=== PATIENT | female | born 1960 | race Caucasian/White ===

== ENCOUNTER → 2019-05-25 | Outpatient (CLI) | payer BC ==
--- NOTE | 2019-05-25 09:42 | XR ---
EXAMINATION TYPE: XR foot complete RT DATE OF EXAM: 05/25/2019 COMPARISON: NONE HISTORY: Pain TECHNIQUE: Three views are submitted. FINDINGS: The osseous structures are intact. There is no acute fracture or dislocation. Severe arthropathy o f the first MTP. IMPRESSION: 1. No acute fracture or dislocation. If symptoms persist, follow-up exam in 7 to 10 days could be ob tained. 2. Arthropathy first MTP
== END | disposition home or self-care (01) ==
LOC: RADXRMAIN 08:09
PROVIDERS: ATTEND Family Medicine
DX: M19.071 Primary osteoarthritis, right ankle and foot (principal)

== ENCOUNTER → 2020-01-24 | Outpatient (CLI) | payer BC ==
--- NOTE | 2020-01-24 09:37 | XR ---
EXAMINATION TYPE: XR Hip Complete LT DATE OF EXAM: 01/24/2020 COMPARISON: NONE HISTORY: Pain and clicking TECHNIQUE: 2 views submitted FINDINGS: There is no evidence of erosive change or acute fracture. Mild concentric narrowing the joint space w ith hypertrophic change of the acetabulum. IMPRESSION: 1. Arthropathy correlate for femoral acetabular impingement.
== END | disposition home or self-care (01) ==
LOC: RADXRMAIN 09:12
PROVIDERS: ATTEND Family Medicine
DX: M12.852 Other specific arthropathies, not elsewhere classified, left hip (principal)
CPT/HCPCS: 73502

== ENCOUNTER → 2020-03-11 | Outpatient (CLI) | payer BC | END | disposition home or self-care (01) | LOC: LABWHC1 15:50 | PROVIDERS: ATTEND Family Medicine | DX: Z20.828 Contact with and (suspected) exposure to other viral communicable diseases (principal) | CPT/HCPCS: U0003; C9803 ==

== ENCOUNTER → 2020-04-02 | Outpatient (CLI) | payer BC ==
--- NOTE | 2020-04-03 11:20 | MM ---
Reason for exam: screening (asymptomatic). Last mammogram was performed 5 years ago. History: Patient is postmenopausal. Family history of breast cancer in 2 paternal aunts. Took hormonal contraceptives for 6 years. Physical Findings: A clinical breast exam by your physician is recommended on an annual basis and results should be correlated with mammographic findings. MG Screening Mammo w CAD Bilateral CC and MLO view(s) were taken. XCCL view(s) were taken of the right breast. Prior study comparison: April 04, 2015, bilateral MG screening mammo w CAD. August 31, 2000, bilateral special view mammogram. The breast tissue is almost entirely fat. No significant changes when compared with prior studies. ASSESSMENT: Benign, BI-RAD 2 RECOMMENDATION: Routine screening mammogram of both breasts in 1 year.
== END | disposition home or self-care (01) ==
LOC: RADMAMWWP 07:59
PROVIDERS: ATTEND Family Medicine
DX: Z12.31 Encounter for screening mammogram for malignant neoplasm of breast (principal)
CPT/HCPCS: 77067

== ENCOUNTER → 2020-11-06 | Outpatient (CLI) | payer BC ==
--- NOTE | 2020-11-06 08:26 | CT ---
EXAMINATION TYPE: CT hip LT wo con DATE OF EXAM: 11/06/2020 COMPARISON: HISTORY: Difficulty rising from chair. Mobility issues CT DLP: 537.40 mGycm Automated exposure control for dose reduction was used. None of unenhanced CT of the left hip was per formed with axial sagittal and coronal images reviewed in the bone and soft tissue window settings. FINDINGS: There is no evidence for fracture or dislocation. Mild degenerative joint space narrowing is identifi ed. No evidence for soft tissue mass or abnormal fluid collection. Superior acetabular spurring noted . IMPRESSION: NO EVIDENCE OF FRACTURE. DEGENERATIVE CHANGES NOTED.
--- NOTE | 2020-11-06 08:52 | CT ---
EXAMINATION TYPE: CT cervical spine wo con DATE OF EXAM: 11/06/2020 COMPARISON: None HISTORY: Cervical pain, fingers tingling for [address] DLP: 799.[address] of the cervical spine was performed with bone and soft tissue window settings submitted . Coronal and sagittal reconstruction is obtained. Extensive postsurgical change of anterior cervical discectomy and fusion extending from C3 through C7 . Ventral fixation plate and screws are in place. Alignment is near-anatomic. There is hypertrophic c hange seen posteriorly at C3-4 resulting in hard disc and moderate central stenosis and bilateral for aminal encroachment at this level. C4-5 and C5-6 appear within normal limits. Additional hypertrophic change posteriorly at C6-7 with effacement of the ventral thecal sac resulting in mild lateral reces s stenosis and bilateral foraminal encroachment. C2-3 is within normal limits as is C7-T1. IMPRESSION: 1. Extensive postsurgical change of ACDF. 2. Moderate central stenosis at C3-4. See above.
== END | disposition home or self-care (01) ==
LOC: RADCTMAIN 07:12
PROVIDERS: ATTEND Family Medicine
DX: M48.02 Spinal stenosis, cervical region (principal); M54.12 Radiculopathy, cervical region
CPT/HCPCS: 72125

== ENCOUNTER → 2020-11-27 | Outpatient (CLI) | payer BC ==
--- NOTE | 2020-11-27 08:56 | CT ---
EXAMINATION TYPE: CT lumbar spine w con DATE OF EXAM: 11/27/2020 COMPARISON: None. HISTORY: Sciatica CT DLP: 1659.2 mGycm Automated exposure control for dose reduction was used. CONTRAST: CT scan of the lumbar is performed with IV Contrast, patient injected with 80 mL of Isovue 300. Enhanced CT of the lumbar spine was performed. Bone and soft tissue window settings are submitted as well as coronal and sagittal reconstructions. There are 5 lumbar-type vertebra. Mild disc space narrowing L3-L4 and L5-S1 levels with vacuum disc p henomenon. Vertebral body heights are maintained. Slight levoconvex scoliotic curvature positioning o n coronal images. Mild to moderate multilevel anterior and lateral spurring. Multiple posterior thelma ectomy defects and spinous process resection L3-L5 levels noted. Axial images at T12-L1 appear within normal limits. Axial images at L1-L2 level show mild facet arthropathy bilaterally. Axial images at L2-L3 level moderate broad-based posterior disc protrusion effacing the anterior thec al sac. There is moderate facet arthropathy bilaterally effacing posterior lateral thecal sac on axia l image 33. There is mild to moderate left greater than right bilateral inferior neural foraminal kalyn rowing noted. Axial images at L3-L4 level show laminectomy defects and spinous process resection. There is severe b road-based posterior disc protrusion effacing the anterior thecal sac seen by sagittal image 30. Ther e is moderate to advanced facet arthropathy bilaterally. There is moderate to borderline severe bilat eral neural foraminal narrowing noted. Axial images at L4-L5 level show mild/moderate facet arthropathy bilaterally. There is posterior deco mpression changes. Tiny central disc protrusion mildly effaces the anterior thecal sac. Mtbp-zs-daeue ate bilateral neural foraminal narrowing is present. Axial images at L5-S1 level show moderate to advanced facet arthropathy bilaterally. Posterior decomp ression changes are present. There is marginal spurring. There is moderate right inferior and moderat e to severe left-sided neural foraminal narrowing. No suspicious enhancement is present. Cholecystectomy clips are noted on localizer. Few sigmoid colon ic diverticula are appreciated. IMPRESSION: Lower lumbar spine posterior decompression. Multilevel degenerative changes as detailed a rebecca greatest at L3-L4 level.
== END | disposition home or self-care (01) ==
LOC: RADCTMAIN 06:57
PROVIDERS: ATTEND Family Medicine
DX: M47.896 Other spondylosis, lumbar region (principal); M54.30 Sciatica, unspecified side; M54.16 Radiculopathy, lumbar region
CPT/HCPCS: 82565; 84520; 72132; 36415; Q9967

== ENCOUNTER → 2021-01-24 | Outpatient (CLI) | payer BC ==
--- NOTE | 2021-01-24 07:47 | MR ---
EXAMINATION TYPE: MR lumbar spine wo/w con DATE OF EXAM: 01/24/2021 COMPARISON: CT lumbar spine November 27, 2020 HISTORY: Lumbar back pain with radiculopathy TECHNIQUE: Multiplanar, multisequence images of the lumbar spine is performed without and with IV contrast, util izing 11 mL intravenous Gadavist FINDINGS: Sagittal images of the lumbar spine show vertebral body heights to appear satisfactory. Sub tle grade 1 retrolisthesis L2 on L3. Multilevel disc desiccation and moderate disc space narrowing L5 -S1 level with moderate anterior spurring. Dngk-hq-hvpujqyj multilevel anterior spurring overall. Th e conus medullaris is normal in position and signal ending at T12-L1 disc space level. The bone mitzi ow signal intensity is within normal limits. Evidence of posterior decompression changes lower lumbar spine with absent spinous processes of L3-L5 level. No suspicious postcontrast enhancement is seen. Axial images at T12-L1 level shows mild broad-based disc bulge mildly effacing the anterior thecal sa c and mild facet arthropathy and ligamentum flavum hypertrophy. Patent bilateral neural foramina. Axial images at the L1-L2 level appear within normal limits. Axial images at the L2-L3 level shows moderate broad-based disc bulge effacing the anterior thecal sa c. There is mild to moderate facet arthropathy and ligamentum flavum hypertrophy effacing the posteri or lateral thecal sac greater on the right. There is mild right and moderate left-sided inferior neur al foraminal narrowing. Axial images at L3-L4 level show bilateral laminectomy defects and spinous process resection. There i s mild left greater than right facet arthropathy. There is moderate to severe broad-based disc bulge and left foraminal protrusion effacing the anterior thecal sac. There is moderate bilateral inferior neural foraminal narrowing greater on the left. Axial images at the L4-L5 level shows bilateral laminectomy defects and spinous process resection. Th ere is hjza-ko-hcbcibaz facet arthropathy bilaterally. Spinal canal is preserved. Patent bilateral ne ural foramina. Axial images at the L5-S1 level show moderate to advanced facet arthropathy. There is moderate broad disc bulge. There is moderate to severe left-sided neural foraminal narrowing encroaching upon the in ferior margin left L5 nerve sagittal image 2. Right-sided neural foramina shows mild inferior neural foraminal narrowing. Paraspinal muscle bulk is preserved. IMPRESSION: Posterior decompression changes mid to lower lumbar spine. Multilevel degenerative change s are present as detailed above. Largest disc herniation noted at L3-L4 level.
== END | disposition home or self-care (01) ==
LOC: RADMRIMAIN 06:41
PROVIDERS: ATTEND Family Medicine
DX: M51.36 Other intervertebral disc degeneration, lumbar region (principal); M54.16 Radiculopathy, lumbar region
CPT/HCPCS: 72158; A9585

== ENCOUNTER → 2023-03-16 | Outpatient (CLI) | payer BC ==
--- NOTE | 2023-03-16 09:37 | XR ---
EXAMINATION TYPE: XR cervical spine w flex/ext DATE OF EXAM: 03/16/2023 COMPARISON: NONE HISTORY: Pain TECHNIQUE: 6 views are submitted including flexion and extension lateral views. FINDINGS: The odontoid is intact. There are no compression deformities. The prevertebral soft tissue structur es are within normal limits. Postsurgical changes extending from C3 through the lower cervical spine . Alignment anatomic. Posterior spondylosis at all levels with facet arthropathy. Hypertrophic spurri ng and mild degenerative change C2-C3. Oblique views suggest neural foraminal encroachment level C3-C 7. There is a slight anterior listhesis of C2-C3 flexion views and retrolisthesis of C2-C3 on extension views. IMPRESSION: 1. Postsurgical changes with multilevel facet arthropathy and bilateral foraminal encroachment. 2. See above regarding C2-C3.
== END | disposition home or self-care (01) ==
LOC: RADXRMAIN 08:41
PROVIDERS: ATTEND Family Medicine
DX: M47.22 Other spondylosis with radiculopathy, cervical region (principal); M99.71 Connective tissue and disc stenosis of intervertebral foramina of cervical region; Z98.890 Other specified postprocedural states
CPT/HCPCS: 72052

== ENCOUNTER 2024-04-26 06:53 | Emergency (ER) | payer BC ==
[2024-04-26 07:14] LABS: Glucose,Whole Blood 113 mg/dL (70-110)
--- NOTE | 2024-04-26 07:17 | ED ---
General Adult HPI - General Chief complaint: Weakness Stated complaint: Weakness Time Seen by Provider: 04/26/24 07:02 Source: patient, EMS, RN notes reviewed Mode of arrival: EMS Limitations: no limitations - History of Present Illness Initial comments: Patient is a 63-year-old female present to the emergency department with concerns for lightheadedness. Onset of symptoms was a week ago. Patient feels lightheaded in the morning. Patient felt lightheaded again this morning when she woke up. No confusion. No weakness. Patient does have history of similar problems previously associated with blood sugar being low however blood sugar was 155 this morning. Patient had blood pressure of 97 systolic yesterday. Patient has right lower extremity wound that is improving and was at wound care yesterday. - Related Data Allergies Allergy/AdvReac Type Severity Reaction Status Date / Time latex Allergy Dyspnea Verified 04/26/24 07:20 Review of Systems ROS Statement: Those systems with pertinent positive or pertinent negative responses have been documented in the HPI. ROS Other: All systems not noted in ROS Statement are negative. Constitutional: Denies: fever Eyes: Denies: eye pain ENT: Denies: throat pain Respiratory: Denies: cough, dyspnea Endocrine: Denies: fatigue Gastrointestinal: Denies: abdominal pain Musculoskeletal: Denies: back pain Skin: Reports: as per HPI Past Medical History Past Medical History: Diabetes Mellitus, Hypertension Additional Past Medical History / Comment(s): cervical and spinal stenosis, lupus, insulin pump, low platelets Past Surgical History: Adenoidectomy, Back Surgery, Section, Cholecyst ectomy, Hysterectomy, Tonsillectomy Additional Past Surgical History / Comment(s): cervical fusion c2-4, D&C 1996 Past Psychological History: No Psychological Hx Reported Smoking Status: Never smoker Past Alcohol Use History: None Reported Past Drug Use History: None Reported General Exam Limitations: no limitations General appearance: alert, in no apparent distress Head exam: Present: normocephalic Eye exam: Present: normal appearance, PERRL, EOMI ENT exam: Present: normal oropharynx Neck exam: Present: normal inspection Respiratory exam: Present: normal lung sounds bilaterally Cardiovascular Exam: Present: regular rate, normal rhythm, normal heart sounds GI/Abdominal exam: Present: soft. Absent: tenderness Extremities exam: Present: normal inspection. Absent: calf tenderness Neurological exam: Present: alert Psychiatric exam: Present: normal affect, normal mood Skin exam: Present: normal color Course Vital Signs 04/26/24 04/26/24 04/26/24 07:01 07:30 07:32 Temperature 97.2 F L Pulse Rate 89 Pulse Rate [ 87 91 Tree Surgeon Helper ] Respiratory 18 16 16 Rate Blood Pressure 126/70 Blood Pressure 101/75 [Right Arm Sitting] Blood Pressure [Right Arm Standing] Blood Pressure 120/61 [Right Arm Supine] O2 Sat by Pulse 95 97 91 L Oximetry 04/26/24 04/26/24 04/26/24 07:34 08:02 08:35 Temperature 98.0 F Pulse Rate 89 88 Pulse Rate [ 98 Tree Surgeon Helper ] Respiratory 18 16 18 Rate Blood Pressure 117/64 120/77 Blood Pressure [Right Arm Sitting] Blood Pressure 86/69 [Right Arm Standing] Blood Pressure [Right Arm Supine] O2 Sat by Pulse 89 L 97 98 Oximetry 04/26/24 08:55 Temperature Pulse Rate 89 Pulse Rate [ Tree Surgeon Helper ] Respiratory 16 Rate Blood Pressure Blood Pressure [Right Arm Sitting] Blood Pressure [Right Arm Standing] Blood Pressure [Right Arm Supine] O2 Sat by Pulse 98 Oximetry EKG Findings - EKG Results: EKG: interpreted by ERMD (Low voltage in precordial leads), sinus rhythm, normal axis, normal ST/T Medical Decision Making - Medical Decision Making Was pt. sent in by a medical professional or institution (KAREEM Mitchell, TOOL SHARPENER, urgent care, hospital, or correction...) When possible be specific @ -No Did you speak to anyone other than the patient for history (EMS, parent, family, police, friend...)? What history was obtained from this source @ -No Did you review nursing and triage notes (agree or disagree)? Why? @ -I reviewed and agree with nursing and triage notes Were old charts reviewed (outside hosp., previous admission, EMS record, old EKG, old radiological studies, urgent care reports/EKG's, correction records)? Report findings @ -Previous labs were reviewed and BUN/creatinine is worse than previous Differential Diagnosis (chest pain, altered mental status, abdominal pain women, abdominal pain men, vaginal bleeding, weakness, fever, dyspnea, syncope, headache, dizziness, GI bleed, back pain, seizure, CVA, palpatations, mental health, musculoskeletal)? @ -Differential Weakness: Hypoglycemia, shock, sepsis, hyponatremia, anemia, infection, WA, ETOH, adverse medicine reaction, overdose, stroke, this is not meant to be an all-inclusive list. EKG interpreted by me (3pts min.). @ -As above X-rays interpreted by me (1pt min.). @ -Chest x-ray reveals no acute abnormality CT interpreted by me (1pt min.). @ -None done U/S interpreted by me (1pt. min.). @ -None done What testing was considered but not performed or refused? (CT, X-rays, U/S, labs)? Why? @ -None What meds were considered but not given or refused? Why? @ -None Did you discuss the management of the patient with other professionals (professionals i.e. , PA, TOOL SHARPENER, lab, RT, psych nurse, social media marketing specialist, parts technician, teacher, employment officer, case supervisor)? Give summary @ -No Was smoking cessation discussed for >3mins.? @ -No Was critical care preformed (if so, how long)? @ -No Were there social determinants of health that impacted care today? How? (Homelessness, low income, unemployed, alcoholism, drug addiction, transport ation, low edu. Level, literacy, decrease access to med. care, custodial, rehab)? @ -No Was there de-escalation of care discussed even if they declined (Discuss DNR or withdrawal of care, Hospice)? DNR status @ -No What co-morbidities impacted this encounter? (DM, HTN, Smoking, COPD, CAD, Cancer, CVA, ARF, Chemo, Hep., AIDS, mental health diagnosis, sleep apnea, morbid obesity)? @ -None Was patient admitted / discharged? Hospital course, mention meds given and route, prescriptions, significant lab abnormalities, going to OR and other pertinent info. @ -Patient presents with lightheadedness. Patient states she does not eat and drink very well. Evaluation concerning for orthostatic hypotension and renal insufficiency. Patient will be provided fluids. Patient would like to be discharged and follow-up with primary care physician and this does seem reasonable. Patient updated on results and need for close follow-up and repeat testing. Undiagnosed new problem with uncertain prognosis? @ -No Drug Therapy requiring intensive monitoring for toxicity (Heparin, Nitro, Insulin, Cardizem)? @ -No Were any procedures done? @ -No Diagnosis/symptom? @ -Orthostatic hypotension Acute, or Chronic, or Acute on Chronic? @ -Acute Uncomplicated (without systemic symptoms) or Complicated (systemic symptoms)? @ -Complicated with renal insufficiency and mild hyperkalemia Side effects of treatment? @ -No Exacerbation, Progression, or Severe Exacerbation? @ -No Poses a threat to life or bodily function? How? (Chest pain, [place], WA, pneumonia, PE, COPD, DKA, ARF, appy, cholecystitis, CVA, Diverticulitis, Homicidal, Suicidal, threat to staff... and all critical care pts) @ -No - Lab Data Result diagrams: 04/26/24 08:05 04/26/24 08:05 Lab Results 04/26/24 04/26/24 04/26/24 Range/Units 07:13 08:05 08:05 WBC 13.6 H (3.8-10.6) k/uL RBC 4.49 (3.80-5.40) m/uL Hgb 12.3 (11.4-16.0) gm/dL Hct 37.3 (34.0-46.0) % MCV 83.1 (80.0-100.0) fL MCH 27.3 (25.0-35.0) pg MCHC 32.8 (31.0-37.0) g/dL RDW 14.6 (11.5-15.5) % Plt Count 163 (150-450) k/uL MPV 8.9 Neutrophils % 77 % Lymphocytes % 11 % Monocytes % 6 % Eosinophils % 3 % Basophils % 0 % Neutrophils # 10.5 H (1.3-7.7) k/uL Lymphocytes # 1.5 (1.0-4.8) k/uL Monocytes # 0.8 (0-1.0) k/uL Eosinophils # 0.4 (0-0.7) k/uL Basophils # 0.0 (0-0.2) k/uL PT 11.4 (10.0-12.5) sec INR 1.0 (<1.2) APTT 23.5 (22.0-30.0) sec Sodium (137-145) mmol/L Potassium (3.5-5.1) mmol/L Chloride (98-107) mmol/L Carbon Dioxide (22-30) mmol/L Anion Gap mmol/L BUN (7-17) mg/dL Creatinine (0.52-1.04) mg/dL Est GFR (CKD-EPI)AfAm (>60 ml/min/1.73 sqM) Est GFR (CKD-EPI)NonAf (>60 ml/min/1.73 sqM) Glucose (74-99) mg/dL POC Glucose (mg/dL) 113 H (70-110) mg/dL POC Glu Senior Consulting Manager ID Roberto [place] Plasma Lactic Acid Dagoberto (0.7-2.0) mmol/L Calcium (8.4-10.2) mg/dL Magnesium (1.6-2.3) mg/dL Total Bilirubin (0.2-1.3) mg/dL AST (14-36) U/L ALT (4-34) U/L Alkaline Phosphatase (38-126) U/L Troponin I (0.000-0.034) ng/mL Total Protein (6.3-8.2) g/dL Albumin (3.5-5.0) g/dL 04/26/24 04/26/24 04/26/24 Range/Units 08:05 08:05 08:05 WBC (3.8-10.6) k/uL RBC (3.80-5.40) m/uL Hgb (11.4-16.0) gm/dL Hct (34.0-46.0) % MCV (80.0-100.0) fL MCH (25.0-35.0) pg MCHC (31.0-37.0) g/dL RDW (11.5-15.5) % Plt Count (150-450) k/uL MPV Neutrophils % % Lymphocytes % % Monocytes % % Eosinophils % % Basophils % % Neutrophils # (1.3-7.7) k/uL Lymphocytes # (1.0-4.8) k/uL Monocytes # (0-1.0) k/uL Eosinophils # (0-0.7) k/uL Basophils # (0-0.2) k/uL PT (10.0-12.5) sec INR (<1.2) APTT (22.0-30.0) sec Sodium 140 (137-145) mmol/L Potassium 5.7 H (3.5-5.1) mmol/L Chloride 107 (98-107) mmol/L Carbon Dioxide 20 L (22-30) mmol/L Anion Gap 13 mmol/L BUN 63 H (7-17) mg/dL Creatinine 1.30 H (0.52-1.04) mg/dL Est GFR (CKD-EPI)AfAm 50 (>60 ml/min/1.73 sqM) Est GFR (CKD-EPI)NonAf 44 (>60 ml/min/1.73 sqM) Glucose 140 H (74-99) mg/dL POC Glucose (mg/dL) (70-110) mg/dL POC Glu Senior Consulting Manager ID Plasma Lactic Acid Dagoberto 0.8 (0.7-2.0) mmol/L Calcium 9.5 (8.4-10.2) mg/dL Magnesium 2.0 (1.6-2.3) mg/dL Total Bilirubin 0.8 (0.2-1.3) mg/dL AST 30 (14-36) U/L ALT 44 H (4-34) U/L Alkaline Phosphatase 215 H (38-126) U/L Troponin I <0.012 (0.000-0.034) ng/mL Total Protein 6.7 (6.3-8.2) g/dL Albumin 3.5 (3.5-5.0) g/dL Disposition Clinical Impression: Orthostatic hypotension, Renal insufficiency Disposition: HOME SELF-CARE Condition: Stable Instructions (If sedation given, give patient instructions): Hypotension (ED) Additional Instructions: Please do follow-up with your primary care physician in the next couple of days for recheck. You will need to have your kidney function and potassium levels rechecked. Return for increased lightheadedness, inability to tolerate oral intake, weakness, worsening symptoms or other concerns. Is patient prescribed a controlled substance at d/c from ED?: No Referrals: Martínez Presley Jr, [Primary Care Provider] - 1-2 days Time of Disposition: 09:00
[2024-04-26] MEDS: SODIUM CHLORIDE 0.9% 1,000 ML IV STA (08:09)
[2024-04-26] MEDS: SODIUM CHLORIDE 0.9% 500 ML 500 ML IV STA ×2 (08:11→08:57)
[2024-04-26 08:16] LABS: Basophils % (A) 0 %; Eosinophils # (A) 0.4 k/uL (0-0.7); Eosinophils % (A) 3 %; HCT 37.3 % (34.0-46.0); HGB 12.3 gm/dL (11.4-16.0); Lymphocytes # (A) 1.5 k/uL (1.0-4.8); Lymphocytes % (A) 11 %; MCH 27.3 pg (25.0-35.0); MCHC 32.8 g/dL (31.0-37.0); MCV 83.1 fL (80.0-100.0); Mean Platelet Volume 8.9; Monocytes # (A) 0.8 k/uL (0-1.0); Monocytes % (A) 6 %; Neutrophils # (A) 10.5 k/uL (1.3-7.7); Neutrophils % (A) 77 %; Platelet Count 163 k/uL (150-450); RBC 4.49 m/uL (3.80-5.40); RDW 14.6 % (11.5-15.5); WBC 13.6 k/uL (3.8-10.6)
[2024-04-26 08:27] LABS: Partial Thromboplastin Time 23.5 sec (22.0-30.0); Prothrombin Time 11.4 sec (10.0-12.5)
[2024-04-26 08:31] LABS: ALT 44 U/L (4-34); African American GFR (CKD) 50 (>60 ml/min/1.73 sqM); Albumin 3.5 g/dL (3.5-5.0); Anion Gap 13 mmol/L; Blood Urea Nitrogen 63 mg/dL (7-17); Calcium 9.5 mg/dL (8.4-10.2); Carbon Dioxide 20 mmol/L (22-30); Chloride 107 mmol/L (98-107); Glucose 140 mg/dL (74-99); Non-African American GFR(CKD) 44 (>60 ml/min/1.73 sqM); Sodium 140 mmol/L (137-145); Total Bilirubin 0.8 mg/dL (0.2-1.3); Total Protein 6.7 g/dL (6.3-8.2)
[2024-04-26 08:33] LABS: AST 30 U/L (14-36); Alkaline Phosphatase 215 U/L (38-126); Potassium 5.7 mmol/L (3.5-5.1)
--- NOTE | 2024-04-26 08:36 | XR ---
EXAMINATION TYPE: XR chest 2V DATE OF EXAM: 04/26/2024 8:31 AM COMPARISON: None CLINICAL INDICATION: Female, 63 years old with history of Weakness; TECHNIQUE: XR chest 2V Frontal and lateral views of the chest. FINDINGS: Lungs/Pleura: There is no evidence of pleural effusion, focal consolidation, or pneumothorax. Pulmonary vascularity: Unremarkable. Heart/mediastinum: Cardiomediastinal silhouette is unremarkable. Musculoskeletal: No acute osseous pathology. There is fixation hardware in the lower cervical spine. IMPRESSION: No acute cardiopulmonary disease/process. [facility], , 04/26/2024 8:33 AM
[2024-04-26 10:09] VITALS: BP 132/70; PULSE 92; RESP 16; TEMP 97.8
== END 2024-04-26 10:08 | disposition home or self-care (01) ==
LOC: EC 06:53
DX: I95.1 Orthostatic hypotension (principal); N28.9 Disorder of kidney and ureter, unspecified; Z91.040 Latex allergy status
CPT/HCPCS: 36415; 71046; 80053; 83605; 83735; 84484; 85025; 85610; 85730; 93005; 96360; 96361; 99285

== ENCOUNTER 2024-08-30 08:51 | Emergency (ER) | payer BC ==
--- NOTE | 2024-08-30 09:42 | ED ---
Female Urogenital HPI - General Chief complaint: Urogenital Stated complaint: Urogenital Time Seen by Provider: 08/30/24 09:03 Source: patient, RN notes reviewed Mode of arrival: ambulatory Limitations: no limitations - History of Present Illness Initial comments: 63-year-old female presents emerged part complaint gross hematuria. Patient states that started on Wednesday has been progressive. She does have some urinary urgency. No dysuria denies fevers or chills she denies any history of this. She states she is on no blood thinners she states she has had history of thrombocytopenia has seen allergy for years and they just told her this was her normal baseline. Patient denies any chest pain shortness of breath she states she feels tired but no other complaints. - Related Data Previous Rx's Medication Instructions Recorded Levofloxacin [Levaquin] 500 mg PO DAILY #7 tab 08/30/24 Allergies Allergy/AdvReac Type Severity Reaction Status Date / Time latex Allergy Dyspnea Verified 08/30/24 09:00 Review of Systems ROS Statement: Those systems with pertinent positive or pertinent negative responses have been documented in the HPI. ROS Other: All systems not noted in ROS Statement are negative. Past Medical History Past Medical History: Diabetes Mellitus, Hypertension Additional Past Medical History / Comment(s): cervical and spinal stenosis, lupus, insulin pump, low platelets Past Surgical History: Adenoidectomy, Back Surgery, Section, Cholecystectomy, Hysterectomy, Tonsillectomy Additional Past Surgical History / Comment(s): cervical fusion c2-4, D&C 1996 Past Psychological History: No Psychological Hx Reported Smoking Status: Never smoker Past Alcohol Use History: None Reported Past Drug Use History: None Reported General Exam Limitations: no limitations General appearance: alert, in no apparent distress Head exam: Present: atraumatic, normocephalic, normal inspection Eye exam: Present: normal appearance, PERRL, EOMI. Absent: scleral icterus, conjunctival injection, periorbital swelling ENT exam: Present: normal exam, mucous membranes moist Neck exam: Present: normal inspection, full ROM. Absent: tenderness, meningismus, lymphadenopathy Respiratory exam: Present: normal lung sounds bilaterally. Absent: respiratory distress, wheezes, rales, rhonchi, stridor Cardiovascular Exam: Present: regular rate, normal rhythm, normal heart sounds. Absent: systolic murmur, diastolic murmur, rubs, gallop, clicks GI/Abdominal exam: Present: soft, normal bowel sounds. Absent: distended, tenderness, guarding, rebound, rigid Course Vital Signs 08/30/24 08:57 Temperature 97.4 F L Pulse Rate 83 Respiratory 16 Rate Blood Pressure 144/83 O2 Sat by Pulse 96 Oximetry Medical Decision Making - Medical Decision Making Was pt. sent in by a medical professional or institution (, PA, PAYROLL AUDITOR, urgent c are, hospital, or half-way...) When possible be specific @ -No Did you speak to anyone other than the patient for history (EMS, parent, family, police, friend...)? What history was obtained from this source @ -No Did you review nursing and triage notes (agree or disagree)? Why? @ -I reviewed and agree with nursing and triage notes Were old charts reviewed (outside hosp., previous admission, EMS record, old EKG, old radiological studies, urgent care reports/EKG's, half-way records)? Report findings @ -No old charts were reviewed Differential Diagnosis (chest pain, altered mental status, abdominal pain women, abdominal pain men, vaginal bleeding, weakness, fever, dyspnea, syncope, h eadache, dizziness, GI bleed, back pain, seizure, CVA, palpatations, mental health, musculoskeletal)? @ -Differential Abdominal Pain Women: Appendicitis, Cholecystitis, diverticulosis, ischemic bowel, pancreatitis, hepatitis, UTI, gastroenteritis, AAA, incarcerated hernia, bowel obstruction, constipation, inflammatory bowel, hepatitis, peptic ulcer disease, splenic infarction, perforated viscus, vulvitis, ovarian torsion, PID, kidney stone, placenta abruption, this is not meant to be an all-inclusive list EKG interpreted by me (3pts min.). @ -As above X-rays interpreted by me (1pt min.). @ -None CT interpreted by me (1pt min.). @ -None done U/S interpreted by me (1pt. min.). @ -None done What testing was considered but not performed or refused? (CT, X-rays, U/S, labs)? Why? @ -None What meds were considered but not given or refused? Why? @ -None Did you discuss the management of the patient with other professionals (professionals i.e. , KAREEM, PAYROLL AUDITOR, lab, RT, psych nurse, social studies department chair, plant technical specialist, teacher, personnel officer, case management manager)? Give summary @ -Discussed the case with Dr. Rocha on-call recommends oral antibiotics and follow-up in office. Was smoking cessation discussed for >3mins.? @ -No Was critical care preformed (if so, how long)? @ -No Were there social determinants of health that impacted care today? How? (Homelessness, low income, unemployed, alcoholism, drug addiction, transportation, low edu. Level, literacy, decrease access to med. care, penitentiary, rehab)? @ -No Was there de-escalation of care discussed even if they declined (Discuss DNR or withdrawal of care, Hospice)? DNR status @ -No What co-morbidities impacted this encounter? (DM, HTN, Smoking, COPD, CAD, Cancer, CVA, ARF, Chemo, Hep., AIDS, mental health diagnosis, sleep apnea, morbid obesity)? @ -None Was patient admitted / discharged? Hospital course, mention meds given and route, prescriptions, significant lab abnormalities, going to OR and other pertinent info. @ -Discharged patient received Zosyn will be discharged on Levaquin. Patient will follow-up in office and strict return parameters were discussed. Given nature of possible emphysema emphysematous discussed possible admission versus home. Undiagnosed new problem with uncertain prognosis? cystitis @ -No Drug Therapy requiring intensive monitoring for toxicity (Heparin, Nitro, Insulin, Cardizem)? @ -No Were any procedures done? @ -No Diagnosis/symptom? @ -UTI, hematuria Acute, or Chronic, or Acute on Chronic? @ -Acute Uncomplicated (without systemic symptoms) or Complicated (systemic symptoms)? @ -Complicated Side effects of treatment? @ -No Exacerbation, Progression, or Severe Exacerbation? @ -No Poses a threat to life or bodily function? How? (Chest pain, USA, CA, pneumonia, PE, COPD, DKA, ARF, appy, cholecystitis, CVA, Diverticulitis, Homicidal, Suicidal, threat to staff... and all critical care pts) @ -No - Lab Data Result diagrams: 08/30/24 09:31 08/30/24 09:31 Lab Results 08/30/24 08/30/24 08/30/24 Range/Units 09:31 09:31 09:31 WBC 11.18 H (4.50-10.00) 10*3/uL RBC 4.78 (4.10-5.20) 10*6/uL Hgb 12.9 (12.0-15.0) g/dL Hct 39.1 (37.2-46.3) % MCV 81.8 (80.0-97.0) fL MCH 27.0 (27.0-32.0) pg MCHC 33.0 (32.0-37.0) g/dL Plt Count 96 L (140-440) 10*3/uL MPV 11.4 (9.5-12.2) fL Immature Gran % (Auto) 0.4 % Neutrophils % 69.3 % Lymphocytes % 15.4 % Monocytes % 9.8 % Eosinophils % 4.7 % Basophils % 0.4 % Immature Gran # 0.04 (0.00-0.04) 10*3/uL Neutrophils # 7.75 H (1.80-7.70) 10*3/uL Lymphocytes # 1.72 (0.90-5.00) 10*3/uL Monocytes # 1.10 H (0.20-1.00) 10*3/uL Eosinophils # 0.52 H (0.04-0.35) 10*3/uL Basophils # 0.05 (0.00-0.10) 10*3/uL Manual Slide Review Performed PT 10.9 (10.0-12.5) sec INR 1.0 (<1.2) APTT 23.2 (22.0-30.0) sec Sodium (137-145) mmol/L Potassium (3.5-5.1) mmol/L Chloride (98-107) mmol/L Carbon Dioxide (22-30) mmol/L Anion Gap mmol/L BUN (7-17) mg/dL Creatinine (0.52-1.04) mg/dL Est GFR (CKD-EPI)AfAm (>60 ml/min/1.73 sqM) Est GFR (CKD-EPI)NonAf (>60 ml/min/1.73 sqM) Glucose (74-99) mg/dL Calcium (8.4-10.2) mg/dL Total Bilirubin (0.2-1.3) mg/dL AST (14-36) U/L ALT (4-34) U/L Alkaline Phosphatase (38-126) U/L Total Protein (6.3-8.2) g/dL Albumin (3.5-5.0) g/dL Urine Color Red Urine Appearance Turbid H (Clear) Urine pH 6.0 (5.0-8.0) Ur Specific [place] 1.013 (1.001-1.035) Urine Protein 2+ H (Negative) Urine Glucose (UA) Negative (Negative) Urine Ketones Negative (Negative) Urine Blood Large H (Negative) Urine Nitrite Negative (Negative) Urine Bilirubin Negative (Negative) Urine Urobilinogen <2.0 (<2.0) mg/dL Ur Leukocyte Esterase Large H (Negative) Urine RBC >182 H (0-5) /hpf Urine WBC >182 H (0-5) /hpf Ur Squamous Epith Cells 4 (0-4) /hpf Urine Bacteria Few H (None) /hpf 08/30/24 Range/Units 09:31 WBC (4.50-10.00) 10*3/uL RBC (4.10-5.20) 10*6/uL Hgb (12.0-15.0) g/dL Hct (37.2-46.3) % MCV (80.0-97.0) fL MCH (27.0-32.0) pg MCHC (32.0-37.0) g/dL Plt Count (140-440) 10*3/uL MPV (9.5-12.2) fL Immature Gran % (Auto) % Neutrophils % % Lymphocytes % % Monocytes % % Eosinophils % % Basophils % % Immature Gran # (0.00-0.04) 10*3/uL Neutrophils # (1.80-7.70) 10*3/uL Lymphocytes # (0.90-5.00) 10*3/uL Monocytes # (0.20-1.00) 10*3/uL Eosinophils # (0.04-0.35) 10*3/uL Basophils # (0.00-0.10) 10*3/uL Manual Slide Review PT (10.0-12.5) sec INR (<1.2) APTT (22.0-30.0) sec Sodium 139 (137-145) mmol/L Potassium 4.2 (3.5-5.1) mmol/L Chloride 103 (98-107) mmol/L Carbon Dioxide 27 (22-30) mmol/L Anion Gap 9 mmol/L BUN 34 H (7-17) mg/dL Creatinine 0.98 (0.52-1.04) mg/dL Est GFR (CKD-EPI)AfAm 71 (>60 ml/min/1.73 sqM) Est GFR (CKD-EPI)NonAf 61 (>60 ml/min/1.73 sqM) Glucose 71 L (74-99) mg/dL Calcium 9.6 (8.4-10.2) mg/dL Total Bilirubin 0.9 (0.2-1.3) mg/dL AST 27 (14-36) U/L ALT 22 (4-34) U/L Alkaline Phosphatase 89 (38-126) U/L Total Protein 6.4 (6.3-8.2) g/dL Albumin 3.6 (3.5-5.0) g/dL Urine Color Urine Appearance (Clear) Urine pH (5.0-8.0) Ur Specific [place] (1.001-1.035) Urine Protein (Negative) Urine Glucose (UA) (Negative) Urine Ketones (Negative) Urine Blood (Negative) Urine Nitrite (Negative) Urine Bilirubin (Negative) Urine Urobilinogen (<2.0) mg/dL Ur Leukocyte Esterase (Negative) Urine RBC (0-5) /hpf Urine WBC (0-5) /hpf Ur Squamous Epith Cells (0-4) /hpf Urine Bacteria (None) /hpf Disposition Clinical Impression: Urinary tract infection, Hematuria Disposition: HOME SELF-CARE Condition: Stable Instructions (If sedation given, give patient instructions): Urinary Tract Infection in Women (ED) Additional Instructions: Please return to the Emergency Department if symptoms worsen or any other concerns. Prescriptions: Levofloxacin [Levaquin] 500 mg PO DAILY #7 tab Is patient prescribed a controlled substance at d/c from ED?: No Referrals: Martínez Presley Jr, DO [Primary Care Provider] - 1-2 days Rafi Singh MD [STAFF PHYSICIAN] - 1-2 days Time of Disposition: 12:15
[2024-08-30 09:46] LABS: Basophils # (A) 0.05 10*3/uL (0.00-0.10); Basophils % (A) 0.4 %; Eosinophils # (A) 0.52 10*3/uL (0.04-0.35); Eosinophils % (A) 4.7 %; HCT 39.1 % (37.2-46.3); HGB 12.9 g/dL (12.0-15.0); Lymphocytes # (A) 1.72 10*3/uL (0.90-5.00); Lymphocytes % (A) 15.4 %; MCV 81.8 fL (80.0-97.0); Mean Platelet Volume 11.4 fL (9.5-12.2); Monocytes % (A) 9.8 %; Neutrophils # (A) 7.75 10*3/uL (1.80-7.70); Neutrophils % (A) 69.3 %; RBC 4.78 10*6/uL (4.10-5.20); RDW 15.3 % (11.5-14.5); WBC 11.18 10*3/uL (4.50-10.00)
[2024-08-30 10:00] LABS: Partial Thromboplastin Time 23.2 sec (22.0-30.0); Prothrombin Time 10.9 sec (10.0-12.5)
[2024-08-30 10:01] LABS: ALT 22 U/L (4-34); African American GFR (CKD) 71 (>60 ml/min/1.73 sqM); Albumin 3.6 g/dL (3.5-5.0); Anion Gap 9 mmol/L; Blood Urea Nitrogen 34 mg/dL (7-17); Calcium 9.6 mg/dL (8.4-10.2); Carbon Dioxide 27 mmol/L (22-30); Chloride 103 mmol/L (98-107); Glucose 71 mg/dL (74-99); Non-African American GFR(CKD) 61 (>60 ml/min/1.73 sqM); Sodium 139 mmol/L (137-145); Total Bilirubin 0.9 mg/dL (0.2-1.3); Total Protein 6.4 g/dL (6.3-8.2)
--- NOTE | 2024-08-30 10:08 | CT ---
EXAMINATION TYPE: CT abdomen pelvis wo con DATE OF EXAM: 08/30/2024 9:50 AM COMPARISON: None CLINICAL INDICATION: Female, 63 years old with history of Hematuria; Hematuria since Wednesday. TECHNIQUE: CT of the abdomen and pelvis without IV contrast. Coronal and sagittal reconstructions per formed. CT DLP: 1479.4 mGycm, Automated exposure control for dose reduction was used. FINDINGS: LOWER CHEST: Heart upper limits of normal in size. Strandy atelectasis lower lungs. No pleural effusi on. ABDOMEN LIVER: Unremarkable GALLBLADDER AND BILE DUCTS: Cholecystectomy clips. PANCREAS: Unremarkable. SPLEEN: Unremarkable. ADRENAL GLANDS: Unremarkable. KIDNEYS AND URETERS: No evidence of hydronephrosis or renal calculus. The ureters are unremarkable. PELVIS BLADDER: Circumferential wall thickening. Air along the inferior posterior bladder wall. Prominent no ndependent intraluminal air within the bladder. REPRODUCTIVE: Uterus surgically absent. Both ovaries are visualized. Small pelvic phleboliths. Pelvic floor relaxation. ABDOMEN & PELVIS STOMACH AND BOWEL: Small hiatal hernia. No evidence of bowel obstruction. [id number] stool. Sca ttered mild colonic diverticulosis. Normal appendix. No pericolonic inflammatory change. PERITONEUM/RETROPERITONEUM: No evidence of pneumoperitoneum or free fluid. VASCULATURE: Scattered mild atherosclerotic calcifications. MUSCULOSKELETAL: moderate to advanced degenerative change throughout the visualized lower thoracic an d lumbar spine. LYMPH NODES: No gross evidence for lymphadenopathy. SOFT TISSUE/ABDOMINAL WALL: Pelvic floor relaxation. IMPRESSION: 1. Prominent air within the bladder lumen and some scattered foci of air along the posterior and inf erior bladder wall. Correlate for emphysematous cystitis. Also, correlate to exclude any urine per th e vagina or colon to exclude the possibility of a fistula accounting for the air. 2. Pelvic floor relaxation. 3. No nephrolithiasis or hydronephrosis. [facility], , 08/30/2024 10:06 AM
[2024-08-30 10:14] LABS: Potassium 4.2 mmol/L (3.5-5.1)
[2024-08-30 10:15] LABS: AST 27 U/L (14-36); Alkaline Phosphatase 89 U/L (38-126)
[2024-08-30 10:37] LABS: Platelet Count 96 10*3/uL (140-440)
[2024-08-30 10:41] LABS: Appearance,Urine Turbid (Clear); Bacteria,Urine Few /hpf; Bilirubin,Urine Negative (Negative); Blood,Urine Large (Negative); Color,Urine Red; Glucose,Urine (UA) Negative (Negative); Ketones,Urine Negative (Negative); Leukocyte Esterase,Urine Large (Negative); Nitrite,Urine Negative (Negative); Protein,Urine 2+ (Negative); RBC,Urine >182 /hpf (0-5); Squamous Epithelial Cell,Urine 4 /hpf (0-4); Urobilinogen,Urine <2.0 mg/dL (<2.0); WBC,Urine >182 /hpf (0-5)
[2024-08-30 10:44] LABS: Specific Gravity,Urine 1.013 (1.001-1.035)
[2024-08-30] MEDS: PIPERACILLIN-TAZOBACTAM 3.375 GM in SODIUM CHLORIDE 0.9% 100 ML IVPB STA (11:29)
[2024-08-30 12:38] VITALS: BP 134/62; PULSE 98; RESP 20; TEMP 98
== END 2024-08-30 14:35 | disposition home or self-care (01) ==
LOC: EC 08:51
DX: N39.0 Urinary tract infection, site not specified (principal); Z91.040 Latex allergy status; B96.20 Unspecified Escherichia coli [E. coli] as the cause of diseases classified elsewhere
CPT/HCPCS: 36415; 80053; 85025; 85610; 85730; 81001; 87040; 87086; 87077; 87186; 74176; 99284; 96365; J2543

== ENCOUNTER → 2024-10-20 | Outpatient (CLI) | payer BC ==
--- NOTE | 2024-10-20 14:41 | US ---
EXAMINATION TYPE: US kidneys/renal and bladder DATE OF EXAM: 10/20/2024 COMPARISON: CT abdomen pelvis 08/30/2024 CLINICAL INDICATION: Female, 64 years old with history of R33.9 URINARY RETENTION; TECHNIQUE: Grayscale imaging of the bilateral kidneys and urinary bladder: FINDINGS: EXAM MEASUREMENTS: Right Kidney: 10.2 x 4.3 x 4.6 cm Left Kidney: 10.1 x 4.2 x 4.7 cm Right Kidney: No hydronephrosis or masses seen Left Kidney: No hydronephrosis or masses seen Bladder: Anechoic Bilateral Jets seen: no There is no evidence for hydronephrosis at this point in time. No nephrolithiasis is seen. No domi s are identified. Corticomedullary differentiation is maintained bilaterally. The urinary bladder is anechoic without filling defect identified. Ureteral jets are not identified. IMPRESSION: No hydronephrosis or nephrolithiasis. [facility], , 10/20/2024 2:39 PM
== END | disposition home or self-care (01) ==
LOC: RADUSWWP 13:26
PROVIDERS: ATTEND Urology
DX: R33.9 Retention of urine, unspecified (principal)
CPT/HCPCS: 76770